=== PATIENT | female | born 1995 | race Two or more races ===

== ENCOUNTER 2017-07-14 11:57 | Inpatient (IN) ==
[2017-07-14] MEDS ORDERED: ONDANSETRON 4 MG/2 ML VIAL IV STA (12:56)
[2017-07-14] MEDS ORDERED: SODIUM CHLORIDE 0.9% 500 ML IV STA (12:56)
[2017-07-14 13:32] LABS: Apearance,Urine Slightly Hazy (Clear); Bacteria,Urine Occasional /HPF (Few); Bilirubin,Urine Negative (Negative); Blood, Urine Negative (Negative); Glucose,Urine (UA) Negative (Negative); Ketones,Urine Negative (Negative); Mucus,Urine Many /LPF (Occasional); Nitrite,Urine Negative (Negative); Protein,Urine Negative; RBC,Urine <1 /HPF (0-4); Squamous Epithelial Cell,Urine Occasional /HPF (0-10); Urine Color Yellow (Yellow); Urine Specific Gravity 1.021 (1.001-1.035); Urine Urobilinogen < 2.0 EU/DL (0.2-1.0); WBC,Urine <1 /HPF (0-6)
[2017-07-14 13:57] LABS: Alanine Aminotransferase 18 U/L (13-56); Albumin 3.4 G/DL (3.4-5.0); Alkaline Phosphatase 67 U/L (45-117); Aspartate Amino Transferase 20 U/L (0-37); Bilirubin,Total < 0.39 MG/DL (0.2-1.0); Blood Urea Nitrogen 7 MG/DL (7-18); Calcium 8.8 MG/DL (8.5-10.1); Glucose 97 MG/DL (74-106); Osmolality,Calculated 276.4 MOS/KG (273-304); Potassium 4.2 MMOL/L (3.5-5.1); Sodium 140 MMOL/L (136-145); Total Protein 7.2 G/DL (6.4-8.3)
[2017-07-14 14:53] LABS: Basophils % 0.3 % (0.0-0.8); Eosinophils # 0.1 10*3/uL (0.0-0.87); Eosinophils % 1.3 % (0.00-10.9); Hematocrit 39.7 VOL% (35.7-47.0); Hemoglobin 13.1 GM/DL (12.0-16.0); Immature Granulocytes % 0.3 %; Immature Granulocytes Absolute 0.02 #; Lymphocytes # 1.4 10*3/uL (1.4-4.0); Lymphocytes % 19.8 % (21.3-54.2); Mean Corpuscular Hemoglobin 29 PG (27-34); Mean Corpuscular Volume 87.4 FL (87-102); Monocytes # 0.7 10*3/uL (0.11-0.8); Monocytes % 9.7 % (1.7-12.7); Neutrophils # 4.9 10*3/uL (1.4-7.4); Neutrophils % 68.6 % (38.7-73.9); Platelet Count 189 T/CUMM (130-400); Red Blood Count 4.54 MC/CUMM (3.8-5.5); White Blood Count 7.1 T/CUMM (4-12)
[2017-07-14] MEDS ORDERED: DICYCLOMINE 20 MG/2 ML AMP IM ONE (16:00)
[2017-07-14] MEDS ORDERED: METOCLOPRAMIDE 10 MG/2 ML VIAL IV STA (16:00)
[2017-07-14] MEDS ORDERED: HYDROmorphone 2 MG/1 ML VIAL IV STA (17:30)
[2017-07-14] MEDS ORDERED: METOCLOPRAMIDE 10 MG/2 ML VIAL ONE (17:49)
[2017-07-14] MEDS ORDERED: HYDROmorphone 2 MG/1 ML VIAL ONE (17:49)
[2017-07-14] MEDS ORDERED: PROMETHAZINE 25 MG/1 ML VIAL IM PRN (19:25)
[2017-07-14] MEDS ORDERED: ACETAMINOPHEN 325 MG TABLET PO PRN (19:25)
[2017-07-14] MEDS ORDERED: ENOXAPARIN 40 MG/0.4 ML SYRINGE SUBCUT SCH (21:00)
[2017-07-14] MEDS: LACTATED RINGERS 1,000 ML IV SCH (23:04)
[2017-07-14] MEDS: ONDANSETRON 4 MG/2 ML VIAL IV PRN (23:05)
[2017-07-14] MEDS: HYDROmorphone 2 MG/1 ML VIAL IV PRN (23:07)
[2017-07-14] MEDS: PIPERACILLIN/TAZOBACTAM 3,375 MG in SODIUM CHLORIDE 0.9% 100 ML IV SCH (23:09)
[2017-07-15] MEDS: LACTATED RINGERS 1,000 ML IV SCH (03:52)
[2017-07-15] MEDS ORDERED: FAMOTIDINE 20 MG TABLET PO ONE (06:30)
[2017-07-15] MEDS ORDERED: DIAZEPAM 5 MG TABLET PO ONE (06:30)
[2017-07-15] MEDS ORDERED: GABAPENTIN 400 MG CAPSULE PO ONE (06:30)
[2017-07-15] MEDS ORDERED: ACETAMINOPHEN 500 MG TABLET PO ONE (06:30)
[2017-07-15] MEDS: PIPERACILLIN/TAZOBACTAM 3,375 MG in SODIUM CHLORIDE 0.9% 100 ML IV SCH ×3 (07:14→23:41)
[2017-07-15 07:19] LABS: Basophils % 0.4 % (0.0-0.8); Eosinophils # 0.1 10*3/uL (0.0-0.87); Eosinophils % 1.9 % (0.00-10.9); Hematocrit 34.8 VOL% (35.7-47.0); Hemoglobin 11.7 GM/DL (12.0-16.0); Immature Granulocytes % 0.1 %; Immature Granulocytes Absolute 0.01 #; Lymphocytes # 1.6 10*3/uL (1.4-4.0); Lymphocytes % 21.3 % (21.3-54.2); Mean Corpuscular HGB Conc 33.6 GM/DL (32-36); Mean Corpuscular Hemoglobin 29 PG (27-34); Mean Corpuscular Volume 84.9 FL (87-102); Mean Platelet Volume 10.6 FL (9.6-12.0); Monocytes # 0.7 10*3/uL (0.11-0.8); Monocytes % 9.3 % (1.7-12.7); Neutrophils # 4.9 10*3/uL (1.4-7.4); Platelet Count 260 T/CUMM (130-400); Red Cell Distribution Width 12.8 % (9.3-17.3); White Blood Count 7.3 T/CUMM (4-12)
[2017-07-15 07:38] LABS: Eosinophils 1 % (0-10); Hypochromasia 1+; Lymphocytes 21 % (20-55); Microcytosis Slight; Segmented Neutrophils 71 % (50-85); Total Cells Counted 100
[2017-07-15 07:39] LABS: Albumin 3.1 G/DL (3.4-5.0); Bilirubin,Total 0.6 MG/DL (0.2-1.0); Calcium 8.3 MG/DL (8.5-10.1); Osmolality,Calculated 278.3 MOS/KG (273-304); Platelet Estimate Normal; Potassium 3.8 MMOL/L (3.5-5.1); Total Protein 6.3 G/DL (6.4-8.3)
[2017-07-15] MEDS ORDERED: PANTOPRAZOLE 40 MG TABLET PO SCH (09:00)
[2017-07-15] MEDS: PANTOPRAZOLE 40 MG TABLET PO SCH (09:41)
[2017-07-15] MEDS: BISACODYL 5 MG TABLET PO SCH ×2 (09:41→16:28)
[2017-07-15] MEDS ORDERED: POLYETHYLENE GLYCOL POWDER 255 GM BOTTLE PO ONE (18:00)
[2017-07-15] MEDS: HYDROmorphone 2 MG/1 ML VIAL IV PRN (20:50)
[2017-07-15] MEDS ORDERED: MAGNESIUM CITRATE 300 ML BOTTLE PO ONE (21:00)
[2017-07-15] MEDS: ONDANSETRON 4 MG/2 ML VIAL IV PRN (23:42)
[2017-07-16] MEDS ORDERED: MAGNESIUM CITRATE 300 ML BOTTLE PO ONE (04:00)
[2017-07-16] MEDS: ONDANSETRON 4 MG/2 ML VIAL IV PRN (05:05)
[2017-07-16] MEDS: PIPERACILLIN/TAZOBACTAM 3,375 MG in SODIUM CHLORIDE 0.9% 100 ML IV SCH (08:03)
[2017-07-16] MEDS: LACTATED RINGERS 1,000 ML IV SCH (08:03)
[2017-07-16] MEDS: BISACODYL 5 MG TABLET PO SCH (08:07)
[2017-07-16] MEDS ORDERED: LIDOCAINE 2% 5 ML VIAL ONE (08:40)
[2017-07-16] MEDS ORDERED: PROPOFOL 200 MG/20 ML VIAL IV ONE (08:40)
[2017-07-16] MEDS: PANTOPRAZOLE 40 MG TABLET PO SCH (10:43)
[2017-07-16 11:35] VITALS: BP 118/78
[2017-07-16] MEDS ORDERED: AMOXICILLIN/CLAV 875 MG TABLET PO SCH (21:00)
== END 2017-07-16 11:35 | disposition home or self-care (01) | DRG 392 ==
LOC: N.ED 11:57 → N.EDINP 16:42 → N.3E 18:38
PROVIDERS: ADMIT Surgery; ATTEND Surgery
PROC: COLONBX (2017-07-16 07:05)